=== PATIENT | male | born 1950 | race Caucasian/White ===

== ENCOUNTER → 2016-11-23 | Outpatient (CLI) | payer MEDICARE, OTHER ==
[~2016-11-23] MED LIST: ADVIL200 MG PO; AMLODIPINE BESYL5 MG PO; COQ-10100 MG PO; CPAP INH; LEVOTHROID (S100 MCG PO; LEVOTHROID (S125 MCG PO; LIPITOR80 MG PO; NORCO 5-325 TA1 EACH PO; PERCOCET 5-3251 EACH PO; SENNA-S TABLET1 EACH PO; ULTRAM50 MG PO
== END | disposition disaster alternative care site (69) ==
LOC: GPOC 11-16 16:00 → EDSTATUS 11-21 16:00 → GRAD 06:47
DX: M48.06 Spinal stenosis, lumbar region (principal); M47.896 Other spondylosis, lumbar region; M43.16 Spondylolisthesis, lumbar region

== ENCOUNTER 2016-11-29 15:00 | Inpatient (IN) | payer MEDICARE, OTHER ==
[~2016-11-29] VITALS: Ht 188 cm; Wt 107.0 kg
--- NOTE | ~2016-11-29 | DS ---
PATIENT'S NAME: BRENDEN FUNK [facility] AGE: 66 Y [address] ROOM: [address] [address] LOCATION: [facility] ADMIT DATE: 12/04/2016 Discharge Summary DISCHARGE DATE: 12/06/2016 FAMILY PHYSICIAN: Jarod Braden MD ATTENDING PHYSICIAN: Dimitris Gandara DISCHARGE SUMMARY: This 66-year-old male was admitted electively for a decompressive lumbar laminectomy at L4, L5, S1 with decompression of the nerve roots and lateral recesses bilaterally. He was taken to the operating room on the day of admission and had the surgery uneventfully. Postoperatively, he did quite well and was subsequently discharged home. At the time of discharge, his pain down his lower extremities was no longer present. He is to be seen in the clinic 3 weeks from the time of discharge. He is to see his family doctor for removal of his skin raúl a week from the time of discharge. FINAL DIAGNOSES: 1. Lumbar spinal stenosis L4-5, L5-S1. 2. 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 MD MAGEN REYNOSO/star /[id number] d: 01/01/17 2254 t: 01/02/17 1755, DISCHARGE SUMMARY
--- NOTE | ~2016-11-29 | OR ---
PATIENT'S NAME: BRENDEN FUNK [facility] AGE: 66 Y [address] ROOM: [address] [address] LOCATION: [facility] ADMIT DATE: 12/04/2016 OR/Procedure Report DISCHARGE DATE: FAMILY PHYSICIAN: Jarod Braden MD ATTENDING PHYSICIAN: Dimitris Gandara SURGEON: Dimitris Gandara MD DISTRIBUTED GENERATION PROJECT MANAGER: DATE OF PROCEDURE: 12/04/2016 PREOPERATIVE DIAGNOSES: L4-5 and L5-S1 spinal stenosis with a complete lateral recess stenosis. POSTOPERATIVE DIAGNOSIS: L4-5 and L5-S1 spinal stenosis with a complete lateral recess stenosis. OPERATION PROPOSED AND PERFORMED: 1. Decompressive lumbar laminectomy at L4, L5, and S1. 2. Decompression of lateral recesses bilaterally at the L4-5 and L5-S1 segments accompanied by medial facetectomy, foraminotomy, and complete decompression of the nerve roots bilaterally. 3. Using the microscope. 4. Fluoroscopy with interpretation. 5. Decompression of the lateral recesses bilaterally at L4-5 and L5-S1. DESCRIPTION OF PROCEDURE: Under general anesthesia, the patient was positioned prone. The back was prepped and draped in the usual fashion. A midline linear incision was then carried out extending from the spinous process of L3 to the sacrum. The fascia was incised on either side of the midline. The paraspinal muscles were then reflected from the lamina of L4, L5, and S1 bilaterally. The Mateo self-retaining retractors were then used for retraction. The C-arm was brought in. With the aid of the C-arm, we were able to accurately identify our levels and we marked the levels. We then went ahead and removed the spinous processes of L4, L5 and the superior portion of S1. Then, using the drill, we were able to thin the lamina bilaterally. After that, we then went ahead and brought in the microscope. With the aid of the microscope, we did a complete laminectomy at L4, L5, and the superior portion of S1. After that was done, we then decided to go ahead and decompress the lateral recesses. The findings were the facets were hypertrophied bilaterally and were encroaching upon the lateral recesses. With the aid of the microscope and the drill, we drilled out the medial portion of the facet joint. We followed the nerve root out doing foraminotomies and after this had been done in the sense that we could see the L5 nerve root decompressed and we could see the S1 nerve root which was decompressed. After this was done, the wound was then thoroughly irrigated with bacitracin irrigation. Hemostasis was achieved using powdered Gelfoam PATIENT'S NAME: BRENDEN FUNK [facility] AGE: 66 Y [address] ROOM: [place] [address] LOCATION: [facility] ADMIT DATE: 12/04/2016 OR/Procedure Report DISCHARGE DATE: FAMILY PHYSICIAN: Jarod Braden MD ATTENDING PHYSICIAN: Dimitris Gandara soaked in thrombin as well as regular Gelfoam soaked in thrombin. After this had been achieved, we then went ahead and put a drain in the epidural space, brought it out through a separate stab wound, and closed the wound in layers first the muscle, then the fascia and subcutaneous tissue, and finally the skin. The patient tolerated the procedure well and was taken to the recovery room. MD MAGEN REYNOSO/star /[id number] d: 12/04/16 1905 t: 01/01/17 1326, OPERATIVE SUMMARY
[~2016-11-29 15:00] MED LIST changes: -NORCO 5-325 TA1 EACH PO
--- NOTE | 2016-12-04 16:44 | NUR ---
Significant Event:PT. TO FLOOR AT 1400 WITH LAMINECTOMY L-4-5, S-1. A/O AND COOPERATIVE. 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 ON 1L PER NC AND HAS CPAP AT HS AND MAY HAVE A PROBLEM WITH O2 MONITORING FOR PAYMASTER OF PURSES AND CPAP. RESPIRATORY THERAPY WILL TAKE A LOOK AT IT AND DECIDE. LOW BACK DRESSING D/I WITH HEMAVAC DRAINING DARK RED FLUID. POST OP VSS. SECOND HOURLY AT 1830. Follow up:
--- NOTE | 2016-12-05 03:38 | NUR ---
Shift Summary: Patient unable to void at beginning of shift. Sraight cathed for 900ml urine. Has voided 200ml since then. Has hemovac to lumbar back. Had 110ml bloody drainage. 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 Used 4mg this shift. Has bilateral cochlear implants. Tolerating regular diet well.
--- NOTE | 2016-12-05 10:05 | NUR ---
Introduced self/role to patient and his Jennifer, They were planning to discharge tomorrow. Will need a toilet riser possibly but will order one off [employer]. NO other DME needed. No barriers to getting home or at home. Added my name to the marker board, will continue to follow.
--- NOTE | 2016-12-05 17:12 | NUR ---
Significant Event:PT. A/O AND COOPERATIVE. UP TO CHAIR AND BAG BATH GIVEN. MODERATE SATURATION ON BACK DRESSING AND DRESSING CHANGED PER DR. VERDUZCO. HEMAVAC INTACT AND HAD 65MLS. THIS SHIFT. EATING W/O DIFFICULTY AND VOIDED 1500 MLS. ORAL PAIN MEDS GIVEN WITH GOOD PAIN CONTROL. PLAN TO GO HOME TOMORROW. Follow up:
--- NOTE | 2016-12-06 05:32 | NUR ---
Significant Event: Pt alert and oriented. Dressing to lower back cl/dry/intact. Hemavac with 55mls out. Pain controlled with oral [place]. Major c/o constipation, gave senna at HS. Suppository at 0215 with small results of small hard separate lumps that pt needed help evacuating. Enema given at 0315 with small results. Pt did get lightheaded and diaphoretic when bearing down, encouraged pt to lay down and is resting at this time. Poss discharge today. Follow up:
--- NOTE | 2016-12-06 15:15 | NUR ---
Nurse Izabella called, patient and want to visit with me about him staying another day due to patient not feeling like his bowels are moving adequately. 1540 Called Alee with UR. He should be okay to stay another night. Meet with patient and family. Can not guarantee Medicare will cover but we feel like we have reason to keep him. He will continue to try to have a bowel movement. If he does have one and it isn't too late they will go home. They have a [address] Updated charge nurse.
--- NOTE | 2016-12-06 19:41 | NUR ---
Significant Event: UP IN ROOM TO BR WITH 1 ASSIST, CAN BE IMPULSIVE AT TIMES. HEMAVAC DC'D AND BACK DRSG CHANGED, INCISION LOOKS GOOD LIBBY INTACT. HAD NORCO 1 TAB AT 0915, REFUSED PAIN MED WHEN OFFERED THRU OUT STIFT..CSM GOOD IN ALL EXTREM...IS VERY CONCERNED ABOUT BOWELS. HAD MILK OF MAG, MIRALAX COLACE, DUL SUPP AND FLLET EMEMA THIS SHIFT. ABD ROUND BS ACTIVE, IS PASSING FLATUS, HAD 3 SMALL BM BUT REPORTS STILL FEELS FULL. Follow up:
[2016-12-06] MEDS ORDERED: NORCO 5-325 TA1 EACH PO (20:25)
--- NOTE | 2016-12-06 21:41 | NUR ---
Patient was given dismissal instructions and BANG handouts. The IV was taken out. The patient and his had no furter questions or concerns. [place] given at 2023. Vital signs stable. Dismissed per wheelchair to private car with .
== END 2016-12-06 20:55 | disposition disaster alternative care site (69) | DRG 520 ==
LOC: G3N 12-04 06:48
PROVIDERS: ADMIT Neurological Surgery
PROC: 00NY3ZZ Release Lumbar Spinal Cord, Percutaneous Approach (ICD-10-PCS; principal; 2016-12-04)
DX: M48.06 Spinal stenosis, lumbar region (principal); M48.07 Spinal stenosis, lumbosacral region
CPT/HCPCS: J0690; J1100; J2001; J2270; J2405; J3010; J7030; J7120